=== PATIENT | male | born 1965 | race Two or more races ===

== ENCOUNTER 2021-03-21 14:50 | Outpatient (CLI) | payer OTHER ==
[~2021-03-21 14:50] MED LIST: NAPROSYN375 MG PO
== END 2021-03-21 15:00 | disposition home or self-care (01) ==
LOC: PPH VACUNA 14:50
PROVIDERS: ATTEND Emergency Medicine Pediatric Emergency Medicine
DX: Z23 Encounter for immunization (principal)